=== PATIENT | male | born 1950 | race Asian ===

== ENCOUNTER 2024-05-05 20:09 | Emergency (ER) | payer MEDICARE ==
[~2024-05-05] VITALS: Ht 162.6 cm; Wt 59.5 kg
[2024-05-05 20:22] VITALS: TEMP 98.5
[2024-05-05] MEDS ORDERED: Morphine 4 MG/ML VIAL IV ONE (20:45)
[2024-05-05 21:01] LABS: COLLECTION METHOD CLEAN CATCH
[2024-05-05 21:03] LABS: BASO % 0.4 % (0.0-2.0); EOS # 0.2 K/mm3 (0.0-0.7); EOS % 2.2 % (0.0-4.0); GRAN # 5.4 K/mm3 (1.4-6.5); GRAN % 61.2 % (42.2-75.2); HEMATOCRIT 41.4 % (42.0-52.0); HEMOGLOBIN 13.5 g/dl (13.5-18.0); LYMPH # 2.7 K/mm3 (1.2-3.4); LYMPH % 30.1 % (20.0-51.0); MEAN CELL VOLUME 87 fl (80.0-100.0); MEAN CORPUSCULAR HEMOGLOBIN 28 pg (27-31); MEAN CORPUSCULAR HGB CONC 33 g/dl (33.0-37.0); MEAN PLATELET VOLUME 10.4 fl (7.4-10.4); MONO # 0.5 K/mm3 (0.1-0.6); MONO % 5.7 % (1.7-9.3); PLATELET COUNT 235 K/mm3 (130-400); RED BLOOD COUNT 4.78 M/mm3 (4.20-5.60)
[2024-05-05 21:16] LABS: URINE APPEARANCE Clear (CLEAR/HAZY); URINE BLOOD Negative (NEGATIVE); URINE COLOR Yellow (YELLOW); URINE GLUCOSE Negative (NEGATIVE); URINE KETONE Negative (NEGATIVE); URINE NITRATE Negative (NEGATIVE); URINE PROTEIN(semi-quant) Negative (NEGATIVE)
[2024-05-05 21:29] LABS: ALBUMIN 4.4 g/dL (3.4-4.8); BILIRUBIN,TOTAL 0.4 mg/dL (0.2-1.2); CALCIUM 10.1 mg/dL (8.4-10.2); CREATININE, serum 1.27 mg/dL (0.72-1.25); POTASSIUM 4.1 mEq/L (3.5-4.5); TOTAL PROTEIN 7.8 g/dl (6.2-8.1)
[2024-05-05] MEDS ORDERED: Iohexol 300 - 100 ML VIAL IV ONE (21:51)
[2024-05-05] MEDS ORDERED: NS 50 ML IV ONE (22:00)
[2024-05-05] MEDS ORDERED: PROTONIX 40MG T40 MG PO (22:25)
[2024-05-05] MEDS ORDERED: Pantoprazole 40 MG in NS 10 ML IV ONE (22:30)
[2024-05-05] MEDS ORDERED: Mag/Al Hydrox/Simeth Susp 30 ML CUP PO ONE (22:30)
[2024-05-05] MEDS ORDERED: NORCO 325 MG-51 TAB PO (22:42)
[2024-05-05 23:08] VITALS: BP 133/100; PULSE 89
== END 2024-05-05 23:09 | disposition home or self-care (01) ==
LOC: COL.ER 20:09
PROVIDERS: Physician Assistant
DX: M54.6 Pain in thoracic spine (principal); K21.00 Gastro-esophageal reflux disease with esophagitis, without bleeding
CPT/HCPCS: J2270; J2470; Q9967

== ENCOUNTER 2024-05-26 19:37 | Emergency (ER) | payer MEDICARE ==
[~2024-05-26] VITALS: Ht 162.6 cm; Wt 59.1 kg
[~2024-05-26 19:37] MED LIST: NORCO 325 MG-51 TAB PO; PROTONIX 40MG T40 MG PO
[2024-05-26 19:49] VITALS: TEMP 98.2
[2024-05-26 20:10] LABS: BASO % 0.2 % (0.0-2.0); EOS # 0.2 K/mm3 (0.0-0.7); EOS % 2.7 % (0.0-4.0); GRAN # 3.6 K/mm3 (1.4-6.5); GRAN % 56.3 % (42.2-75.2); HEMOGLOBIN 11.8 g/dl (13.5-18.0); LYMPH # 2.2 K/mm3 (1.2-3.4); LYMPH % 33.8 % (20.0-51.0); MEAN CELL VOLUME 88 fl (80.0-100.0); MEAN CORPUSCULAR HEMOGLOBIN 29 pg (27-31); MEAN CORPUSCULAR HGB CONC 33 g/dl (33.0-37.0); MEAN PLATELET VOLUME 9.8 fl (7.4-10.4); MONO # 0.4 K/mm3 (0.1-0.6); MONO % 6.7 % (1.7-9.3); PLATELET COUNT 231 K/mm3 (130-400); RED BLOOD COUNT 4.12 M/mm3 (4.20-5.60); REDCELL DISTRIBUTION WIDTH-CV 14.7 % (11.5-14.5)
[2024-05-26 20:12] LABS: HEMATOCRIT 36.2 % (42.0-52.0)
[2024-05-26 20:30] LABS: ALANINE AMINOTRANSFERASE 18 U/L (0-55); ALBUMIN 3.6 g/dL (3.4-4.8); ALKALINE PHOSPHATASE 86 U/L (40-150); ANION GAP 11 mmol/L (7-16); AST,SGOT 21 U/L (5-34); BILIRUBIN,TOTAL 0.3 mg/dL (0.2-1.2); BLOOD UREA NITROGEN 27 mg/dL (8-26); CALCIUM 9.4 mg/dL (8.4-10.2); CHLORIDE 107 mEq/L (98-107); CREATININE, serum 1.33 mg/dL (0.72-1.25); GLUCOSE 93 mg/dL (70-99); SODIUM 140 mEq/L (136-145)
[2024-05-26 20:33] LABS: PROTHROMBIN TIME 10.5 SECONDS (9.7-12.8)
[2024-05-26 20:36] LABS: D-DIMER < 200.00 ng/mLDDu (200-230); TROPONIN-I < 0.010 ng/mL (0.00-0.033)
[2024-05-26] MEDS ORDERED: NORVASC 10MG10 MG PO (20:42)
[2024-05-26] MEDS ORDERED: CRESTOR 10MG10 MG PO (20:42)
[2024-05-26] MEDS ORDERED: PEPCID AC 10MG10 MG PO (20:43)
[2024-05-26] MEDS ORDERED: MYRBETR50MG PO (20:44)
[2024-05-26] MEDS ORDERED: ZYLOPRIM 300MG300 MG PO (20:44)
[2024-05-26] MEDS ORDERED: PROSCAR 5MG5 MG PO (20:45)
[2024-05-26] MEDS ORDERED: Ketorolac 15 MG/ML VIAL IV ONE (20:45)
[2024-05-26 21:32] VITALS: BP 133/85; PULSE 76
== END 2024-05-26 21:32 | disposition home or self-care (01) ==
LOC: COL.ER 19:37
PROVIDERS: Family Medicine
DX: R07.81 Pleurodynia (principal)
CPT/HCPCS: J1885; J2360